=== PATIENT | female | born 1955 | race African-American/Black ===

== ENCOUNTER → 2020-03-13 | Outpatient (CLI) | payer OTHER | LOC: SJCVCIMAG 08:09 | PROVIDERS: ATTEND Internal Medicine Cardiovascular Disease | DX: I34.0 Nonrheumatic mitral (valve) insufficiency (principal); I73.9 Peripheral vascular disease, unspecified; I10 Essential (primary) hypertension; E78.5 Hyperlipidemia, unspecified; F17.200 Nicotine dependence, unspecified, uncomplicated; Z95.1 Presence of aortocoronary bypass graft; Z95.828 Presence of other vascular implants and grafts ==

== ENCOUNTER 2021-08-06 10:13 | Observation (INO) | payer MEDICARE, OTHER ==
[~2021-08-06] VITALS: Ht 175.3 cm; Wt 52.2 kg
[2021-08-06 10:14] VITALS: BP 182/66
[2021-08-06 10:29] LABS: ABSOLUTE NEUTROPHILS 3.2 thou/uL (1.4-8.2); EOSINOPHILS 2.4 % (0.0-3.0); HEMATOCRIT 42.6 % (37.0-47.0); HEMOGLOBIN 13.8 gm/dL (12.0-15.0); LYMPHOCYTES 34.5 % (24.0-44.0); MCH 29.7 pg (26.0-34.0); MCHC 32.5 g/dL (28.0-37.0); MCV 91.2 fL (80.0-100.0); MONOCYTES 8.3 % (1.0-8.0); PLATELET COUNT 316 thou/uL (150-400); POLYS 53.8 % (36.0-66.0); RBC 4.67 mil/uL (4.20-5.00); RDW 14.5 % (10.5-14.5)
[2021-08-06 10:37] LABS: ANION GAP 8 mmol/L (7-16); BUN 17 mg/dL (7-18); CALCIUM 9.1 mg/dL (8.5-10.1); CHLORIDE 101 mmol/L (98-107); CO2 31 mmol/L (21-32); CREATININE 0.9 mg/dL (0.6-1.0); GLUCOSE 105 mg/dL (74-106); POTASSIUM 3.5 mmol/L (3.5-5.1); SODIUM 140 mmol/L (136-145)
[2021-08-06 10:44] LABS: ALBUMIN 4.1 g/dL (3.4-5.0); SGOT 22 U/L (15-37); SGPT 33 U/L (14-59); TOTAL PROTEIN 8.2 g/dL (6.4-8.2)
[2021-08-06 12:15] VITALS: BP 105/62
[2021-08-06 16:30] VITALS: BP 105/62
[2021-08-06 16:45] VITALS: BP 134/64
[2021-08-06 17:00] VITALS: BP 111/59
--- NOTE | 2021-08-07 08:25 | EKG ---
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
--- NOTE | 2021-08-09 23:19 | CATHLAB ---
[facility] [place] [address] INVASIVE PROCEDURE REPORT Name: FRANKI BERNAL Room #: 201-P [facility] Anna MMelissa#: [id number] Admission: 08/06/21 Attend Phys: Robin Welch MD Discharge: 08/06/21 Date of : 55 Report #: [id number] THIS REPORT FOR: cc: Ramila Cortes MD, Carla MD Mancuso, Gerald M. MD [facility] ~ APPROVED REPORT Study performed: 08/06/2021 12:23:57 Patient Details Patient Status: In-Patient Room #: The patient is a 66 year-old female Event Personnel Corona Brambila Marina Manager,, Dorothea Mckeon RTR Scrub, Erick Dias RTR Monitor, Anali Crawford RN endoscopy technican Performed Art Access - R femoral artery* Left Heart Cath Lt Vent/Cors/Grafts [id number] LHCCORCABG 50542 Initial Mod Sed Same Phys/QHP Gr5y [id number] Mod Sed Same Phys/QHP Ea 117367 Hemostasis w/ Mynx Indication Chest pain Procedure Narrative The patient was brought urgently to the Cardiac Catheterization Laboratory and was prepped and draped in a sterile manner. The Right Groin^ was infiltrated with 1% Lidocaine subcutaneous anesthesia. A PINNACLE 6FR Sheath #[id number] sheath was inserted into the RFA^. Coronary angiography was performed using coronary diagnostic catheters. The right coronary system was accessed and visualized with a JR4 catheter. The left coronary system was accessed and visualized with a JL4 catheter. The left ventricle was accessed and visualized with a PIGTAIL catheter. Left ventriculogram was performed in 30 degree projection. An aortogram of the ascending aorta was performed. Closure device was deployed with a Fr MYNXGRIP 6/7F #[id number]. The patient tolerated the procedure well and there were no complications associated with the procedure. There was no hematoma. Intraoperative Conscious Sedation Sedation start time: 14:25 Case end Time: [facility] [address] [place] [address] INVASIVE PROCEDURE REPORT Name: FRANKI BERNAL Room #: 201-P [facility] IN [facility]#: [id number] Admission: 08/06/21 Attend Phys: Robin Welch, Discharge: 08/06/21 Date of : 55 Report #: [id number] 15:04 Fentanyl 50 mcg Versed 1.5 mg Fluoro Time: 2.58 minutes Dose: DAP 1917.80 cGycm2 239 mGy Contrast Type and Amount: Omnipaque 120 ml Hemodynamics The aortic pressure is 107/48 mmHg with a mean of 66 mmHg. The left ventricular pressure is 129/-5 mmHg with a mean of mmHg. The left ventricular end diastolic pressure is 16 mmHg. Conclusion #1 Left ventricle is normal in size hyperdynamic no wall motion abnormality EF 70%. #2 abdominal aortogram shows mild ectasia and calcification but no significant aneurysm. Mild bilateral iliac stenosis noted. #3 the left main is mild disease giving rise to LAD and circumflex. #4 the LAD is mild irregularities 3040% proximal mid vessel but no high-grade occlusive disease. Appears to be some retrograde filling of a prior graft. #5 circumflex OM nondominant mild irregularity. #6 the MARCOS is a atretic and providing some filling to already a briskly filled LAD system. #7 the dominant right is mild irregularities relatively small in caliber but no high-grade occlusive disease. #8 there is a possible SVG a radial graft which is subtotally occluded and looks like it may have been filling a diagonal system it is filling competitively. No indication for intervention as this LAD diagonal system is briskly fill via the [place] circulation. Recommendations and plan: Continue aggressive risk factor modification there is no indication for coronary intervention here. <ELECTRONICALLY SIGNED> By: Corona Brambila MD, FACC 08/09/212318 18 18 Corona Brambila MD, FACC /INF
== END 2021-08-06 18:58 | disposition home or self-care (01) ==
LOC: ER 10:13 → 2N 15:10 → EROBS 15:10 → 2N 15:11
PROVIDERS: Student in an Organized Health Care Education/Training Program; ADMIT Internal Medicine; ATTEND Internal Medicine
DX: I25.10 Atherosclerotic heart disease of native coronary artery without angina pectoris (principal); R07.2 Precordial pain; Z95.1 Presence of aortocoronary bypass graft; Z79.82 Long term (current) use of aspirin; Z79.899 Other long term (current) drug therapy
CPT/HCPCS: 10081